=== PATIENT | female | born 1985 | race Caucasian/White ===

== ENCOUNTER 2019-05-05 01:11 | Emergency (ER) | payer OTHER ==
[2019-05-05 02:10] VITALS: BMI 47.0
[2019-05-05] MEDS ORDERED: ACETAMINOPHEN 325 MG TABLET (FP) PO ONE (03:10)
--- NOTE | 2019-05-05 03:10 | PDOC ---
History of Present Illness - General Chief Complaint: Edema Stated Complaint: SWELLING,LEGS/26WKS History Source: Patient Exam Limitations: No Limitations - History of Present Illness Initial Comments: 05/05/19 07:27 33 yo F A2 at 26 weeks GA confirmed IUP single by Dr. Armenta at [facility] with hx of rash (Currently treated) presents to the emergency department with b/l LE swelling that has been ongoing for 1 week. Per the patient, she denies the following: recent travels or immobilizations, hx of DVT/ PE, and recent surgeries. She states she noticed the swelling worsened significantly over the past 24 hours with the edema reaching to her groin bilaterally. Past History - Past Medical History Allergies/Adverse Reactions: Allergies Allergy/AdvReac Type Severity Reaction Status Date / Time No Known Allergies Allergy Verified 05/05/19 02:11 Home Medications: Ambulatory Orders Cyclobenzaprine HCl [Flexeril] 10 mg PO TID #20 tablet 09/17/14 Ibuprofen [Motrin -] 600 mg PO QID #28 tablet 09/17/14 - Surgical History Appendectomy: Yes - Immunization History Immunization Up to Date: Yes - Psycho Social/Smoking Cessation Hx Smoking History: Never smoked Number of Cigarettes Smoked Daily: 2 Hx Alcohol Use: Yes (occasion) Substance Use Type: None Review of Systems - Review of Systems Able to Perform ROS?: Yes Is the patient limited [place] proficient: No Constitutional: No: Chills, Diaphoresis, Fever, Weakness HEENTM: No: Eye Pain, Ear Pain, Nose Pain, Throat Pain, Mouth Pain Respiratory: No: Cough, Shortness of Breath, Hemoptysis Cardiac (ROS): Yes: Edema (b/l LE). No: Chest Pain, Lightheadedness, Palpitations, Chest Tightness ABD/GI: No: Constipated, Diarrhea, Nausea, Rectal Bleeding, Vomiting, Tarry Stools : No: Burning, Hematuria Musculoskeletal: No: Back Pain, Joint Pain, Neck Pain Integumentary: Yes: Rash (known related rash). No: Bruising, Erythema Neurological: No: Headache, Numbness, Tingling, Tremors Psychiatric: No: Change in Appetite Endocrine: No: Unexplained Weight Loss Hematologic/Lymphatic: No: Anemia *Physical Exam - Vital Signs Last Vital Signs Temp Pulse Resp BP Pulse Ox 98.4 F 110 H 18 133/83 100 05/05/19 01:15 05/05/19 01:15 05/05/19 01:15 05/05/19 01:15 05/05/19 01:15 - Physical Exam General Appearance: Yes: Nourished, Appropriately Dressed. No: Apparent Distress, Intoxicated HEENT: positive: EOMI, SILVINO, Normal Voice, Symmetrical, Pharynx Normal. negative: Pale Conjunctivae, Scleral Icterus (R), Scleral Icterus (L), Muffled/ Hoarse voice, Pharyngeal Erythema, Tonsillar Exudate, Tonsillar Erythema, Nasal Congestion, Rhinorrhea, Sinus Tenderness Neck: positive: Trachea midline, Supple. negative: Tender, Lymphadenopathy (R) , Lymphadenopathy (L) Respiratory/Chest: positive: Lungs Clear, Normal Breath Sounds. negative: Chest Tender, Respiratory Distress, Accessory Muscle Use Cardiovascular: positive: Regular Rhythm, Regular Rate, S1, S2. negative: Systolic Murmur Gastrointestinal/Abdominal: positive: Normal Bowel Sounds, Flat, Soft, Other ( gravid). negative: Tender Lymphatic: negative: Adenopathy Musculoskeletal: positive: Normal Inspection. negative: CVA Tenderness, Vertebral Tenderness Extremity: positive: Normal Capillary Refill, Normal Range of Motion, Swelling. negative: Normal Inspection (b/l LE edema without pitting noted on both LE. No rashes noted. no calf tenderness. ), Tender, Calf Tenderness Integumentary: positive: Normal Color, Dry, Warm, Rash ( rash diffuse; chronic) Neurologic: positive: Fully Oriented, Alert, Normal Mood/Affect ED Treatment Course - LABORATORY CBC & Chemistry Diagram: 05/05/19 04:45 05/05/19 04:45 Medical Decision Making - Medical Decision Making 33 yo F A2 at 26 weeks GA confirmed IUP single by Dr. Armenta at [facility] with hx of rash (Currently treated) presents to the emergency department with b/l LE swelling that has been ongoing for 1 week. Initial vitals; Initial Vital Signs Temp Pulse Resp BP Pulse Ox 98.4 F 110 H 18 133/83 100 05/05/19 01:15 05/05/19 01:15 05/05/19 01:15 05/05/19 01:15 05/05/19 01:15 Work up: rule out DVT since the patient is which places her in a hypercoagulable state Laboratory Tests 05/05/19 05/05/19 05/05/19 04:45 04:45 04:45 WBC 14.1 H RBC 4.34 Hgb 8.9 L Hct 28.7 L D MCV 66.1 L MCH 20.6 L D MCHC 31.1 L RDW 20.3 H Plt Count 235 MPV 9.1 D Absolute Neuts (auto) 10.8 H Neutrophils % 76.8 Neutrophils % (Manual) 83.7 H Band Neutrophils % 6.7 Lymphocytes % 7.8 L D Lymphocytes % (Manual) 4.8 L Monocytes % 6.5 Monocytes % (Manual) 2 L Eosinophils % 8.6 H D Eosinophils % (Manual) 1.9 Basophils % 0.3 Basophils % (Manual) 1.0 Myelocytes % (Man) 0 Promyelocytes % (Man) 0 Blast Cells % (Manual) 0 Nucleated RBC % 1 H Metamyelocytes 0 Hypochromia 0 Platelet Estimate Normal Platelet Comment Present Polychromasia 1+ Poikilocytosis 1+ Anisocytosis 2+ Microcytosis 1+ Macrocytosis 0 Tear Drop Cells 1+ Ovalocytes 1+ Stomatocytes 1+ Sodium 136 Potassium 4.3 Chloride 106 Carbon Dioxide 23 Anion Gap 7 L BUN 9.3 Creatinine 0.5 L Est GFR (CKD-EPI)AfAm 146.35 Est GFR (CKD-EPI)NonAf 126.27 Random Glucose 85 Calcium 8.6 Total Bilirubin 0.2 AST 49 H ALT 27 Alkaline Phosphatase 106 Creatine Kinase 103 Troponin I < 0.02 B-Natriuretic Peptide 14.2 Total Protein 6.8 Albumin 2.6 L Beta HCG, Quant 9008.7 Urine Color Urine Appearance Urine pH Ur Specific [place] Urine Protein Urine Glucose (UA) Urine Ketones Urine Blood Urine Nitrite Urine Bilirubin Urine Urobilinogen Ur Leukocyte Esterase Urine WBC (Auto) Urine RBC (Auto) Urine Casts (Auto) U Epithel Cells (Auto) Urine Crystals (Auto) Urine Bacteria (Auto) U Random Total Protein Blood Type Antibody Screen 05/05/19 05/05/19 05/05/19 04:45 04:45 04:45 WBC RBC Hgb Hct MCV MCH MCHC RDW Plt Count MPV Absolute Neuts (auto) Neutrophils % Neutrophils % (Manual) Band Neutrophils % Lymphocytes % Lymphocytes % (Manual) Monocytes % Monocytes % (Manual) Eosinophils % Eosinophils % (Manual) Basophils % Basophils % (Manual) Myelocytes % (Man) Promyelocytes % (Man) Blast Cells % (Manual) Nucleated RBC % Metamyelocytes Hypochromia Platelet Estimate Platelet Comment Polychromasia Poikilocytosis Anisocytosis Microcytosis Macrocytosis Tear Drop Cells Ovalocytes Stomatocytes Sodium Potassium Chloride Carbon Dioxide Anion Gap BUN Creatinine Est GFR (CKD-EPI)AfAm Est GFR (CKD-EPI)NonAf Random Glucose Calcium Total Bilirubin AST ALT Alkaline Phosphatase Creatine Kinase Troponin I B-Natriuretic Peptide Total Protein Albumin Beta HCG, Quant Urine Color Yellow Urine Appearance Cloudy Urine pH 5.5 Ur Specific [place] 1.033 Urine Protein 1+ H Urine Glucose (UA) 2+ H Urine Ketones 1+ H Urine Blood Negative Urine Nitrite Negative Urine Bilirubin Negative Urine Urobilinogen 1.0 Ur Leukocyte Esterase Negative Urine WBC (Auto) 49.3 Urine RBC (Auto) 1 Urine Casts (Auto) 28 U Epithel Cells (Auto) 5.2 Urine Crystals (Auto) Few Urine Bacteria (Auto) 591.9 U Random Total Protein 33.9 H Blood Type O POSITIVE Antibody Screen Negative Patient noted to have UTI on UA with positive protein O + without ab leukocytosis and anemia noted lab work bhcg levels at 9000 Patient signed out to morning team with pending US to rule out DVT. Discharge - Discharge Information Problems reviewed: Yes Clinical Impression/Diagnosis: Leg swelling Qualifiers: Weeks of gestation: unspecified Qualified Code(s): Z34.90 - Encounter for supervision of normal , unspecified, unspecified trimester - Follow up/Referral - Patient Discharge Instructions Additional Instructions: follow up with your OB as scheduled, if symptoms persist, or any time you experience : -regular contractions -decreased movement -vaginal bleeding -your water breaks - Post Discharge Activity
--- NOTE | 2019-05-05 03:21 | PDOC ---
Attending Attestation - Resident Resident Name: Julian Pozo - ED Attending Attestation I have performed the following: I have examined & evaluated the patient, The case was reviewed & discussed with the resident, I agree w/resident's findings & plan - HPI HPI: 05/07/19 17:26 see resident hpi - Physicial Exam PE: 05/07/19 17:26 see resident exam - Medical Decision Making 05/07/19 17:26 33-year-old Female currently 26 weeks gestational age complaining of lower extremity edema Blood pressure borderline on arrival, case signed out to dayshift pending ultrasound and further evaluation, if findings consistent with or concerning for preeclampsia patient to receive 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
[2019-05-05] MEDS ORDERED: ACETAMINOPHEN 325 MG TABLET (FP) ONE (04:16)
[2019-05-05 05:32] LABS: BASO % 0.3 % (0-2.0); EOS % 8.6 % (0-4.5); HEMATOCRIT 28.7 % (32.4-45.2); HEMOGLOBIN 8.9 GM/dL (10.7-15.3); LYMPH % 7.8 % (8-40); MCH 20.6 pg (25.7-33.7); MCHC 31.1 g/dl (32.0-36.0); MEAN CELL VOLUME 66.1 fl (80-96); MEAN PLT VOLUME 9.1 fl (7.5-11.1); MONO % 6.5 % (3.8-10.2); NEUT % 76.8 % (42.8-82.8); PLATELET COUNT 235 K/MM3 (134-434); RBC 4.34 M/mm3 (3.60-5.2); RDW 20.3 % (11.6-15.6); WHITE BLOOD COUNT 14.1 K/mm3 (4.0-10.0)
[2019-05-05 05:37] LABS: EPI CELLS 5.2 /HPF (0-5/HPF); HYALINE CASTS 28 /lpf (0-8); PH,URINE 5.5 (5.0-8.0); URINE APPEARANCE CLOUDY; URINE BACTERIA 591.9 /hpf (NEGATIVE); URINE BILIRUBIN NEGATIVE (NEGATIVE); URINE COLOR YELLOW; URINE GLUCOSE (UA) 2+ (NEGATIVE); URINE KETONE 1+ (NEGATIVE); URINE LEUK ESTERASE NEGATIVE (NEGATIVE); URINE NITRITE NEGATIVE (NEGATIVE); URINE PROTEIN 1+ (NEGATIVE); URINE RBC 1 /hpf (0-4)
[2019-05-05 06:03] LABS: ALBUMIN 2.6 g/dl (3.4-5.0); ALK PHOS 106 U/L (45-117); ANION GAP 7 MMOL/L (8-16); BILIRUBIN,TOTAL 0.2 mg/dL (0.2-1); BLOOD UREA NITROGEN 9.3 mg/dL (7-18); CALCIUM 8.6 mg/dL (8.5-10.1); CHLORIDE 106 mmol/L (98-107); CO2 23 mmol/L (21-32); CREATININE 0.5 mg/dL (0.55-1.3); GLUCOSE,RANDOM 85 mg/dL (74-106); POTASSIUM 4.3 mmol/L (3.5-5.1); SGOT/AST 49 U/L (15-37); SGPT/ALT 27 U/L (13-61); SODIUM 136 mmol/L (136-145); TOT PROT 6.8 g/dl (6.4-8.2)
[2019-05-05 06:18] LABS: N-TERMINAL BNP 14.2 pg/ml (5-125)
--- NOTE | 2019-05-05 07:39 | PDOC ---
*Physical Exam - Vital Signs Last Vital Signs Temp Pulse Resp BP Pulse Ox 98.4 F 110 H 18 133/83 100 05/05/19 01:15 05/05/19 01:15 05/05/19 01:15 05/05/19 01:15 05/05/19 01:15 ED Treatment Course - LABORATORY CBC & Chemistry Diagram: 05/05/19 04:45 05/05/19 04:45 - ADDITIONAL ORDERS Additional order review: Laboratory Results 05/05/19 05/05/19 05/05/19 04:45 04:45 04:45 Sodium 136 Potassium 4.3 Chloride 106 Carbon Dioxide 23 Anion Gap 7 L BUN 9.3 Creatinine 0.5 L Est GFR (CKD-EPI)AfAm 146.35 Est GFR (CKD-EPI)NonAf 126.27 Random Glucose 85 Calcium 8.6 Total Bilirubin 0.2 AST 49 H ALT 27 Alkaline Phosphatase 106 Creatine Kinase 103 Troponin I < 0.02 B-Natriuretic Peptide Total Protein 6.8 Albumin 2.6 L Beta HCG, Quant Urine Color Yellow Urine Appearance Cloudy Urine pH 5.5 Ur Specific [place] 1.033 Urine Protein 1+ H Urine Glucose (UA) 2+ H Urine Ketones 1+ H Urine Blood Negative Urine Nitrite Negative Urine Bilirubin Negative Urine Urobilinogen 1.0 Ur Leukocyte Esterase Negative Urine RBC (Auto) 1 Urine Casts (Auto) 28 U Epithel Cells (Auto) 5.2 Urine Bacteria (Auto) 591.9 U Random Total Protein 33.9 H 05/05/19 04:45 Sodium Potassium Chloride Carbon Dioxide Anion Gap BUN Creatinine Est GFR (CKD-EPI)AfAm Est GFR (CKD-EPI)NonAf Random Glucose Calcium Total Bilirubin AST ALT Alkaline Phosphatase Creatine Kinase Troponin I B-Natriuretic Peptide 14.2 Total Protein Albumin Beta HCG, Quant 9008.7 Urine Color Urine Appearance Urine pH Ur Specific [place] Urine Protein Urine Glucose (UA) Urine Ketones Urine Blood Urine Nitrite Urine Bilirubin Urine Urobilinogen Ur Leukocyte Esterase Urine RBC (Auto) Urine Casts (Auto) U Epithel Cells (Auto) Urine Bacteria (Auto) U Random Total Protein 05/05/19 04:45 RBC 4.34 MCV 66.1 L MCHC 31.1 L RDW 20.3 H MPV 9.1 D Neutrophils % 76.8 Lymphocytes % 7.8 L D Monocytes % 6.5 Eosinophils % 8.6 H D Basophils % 0.3 - Medications Given in the ED: ED Medications Discontinued Medications Generic Name Dose Route Start Last Admin Trade Name Franco PRN Reason Stop Dose Admin Acetaminophen 975 mg 05/05/19 03:10 05/05/19 04:32 Tylenol - PO 05/05/19 03:11 Not Given ONCE ONE Medical Decision Making - Medical Decision Making Received pt as sign out Pending ECG BLE duplex 05/05/19 07:38 ECG w/ sinus tachycardia; HR 108; QTc 474; no axis deviation; TWI III; no DANIELE; abn ecg 05/05/19 08:04 BLE duplex w/o DVT Plan to send to L&D for evaluation for concern of pre-eclampsia Discharge - Discharge Information Problems reviewed: Yes Clinical Impression/Diagnosis: Leg swelling Qualifiers: Weeks of gestation: unspecified Qualified Code(s): Z34.90 - Encounter for supervision of normal , unspecified, unspecified trimester Condition: Stable Disposition: HOME - Admission Yes - Follow up/Referral - Patient Discharge Instructions Additional Instructions: follow up with your OB as scheduled, if symptoms persist, or any time you experience : -regular contractions -decreased movement -vaginal bleeding -your water breaks - Post Discharge Activity
[2019-05-05 10:00] VITALS: TEMP 97.8
[2019-05-05 10:32] VITALS: BP 112/54; PULSE 109
[2019-05-05 11:45] LABS: URINE CRYSTALS FEW /hpf; URINE WBC 49.3 /hpf (0-5)
[2019-05-05 13:05] LABS: ANISOCYTOSIS 2+; MACROCYTOSIS 0; OVALOCYTE 1+; PLATELET ESTIMATE NORMAL; TEAR DROP CELLS 1+
--- NOTE | 2019-05-05 13:42 | EKG ---
Test Reason : Blood Pressure : / mmHG Vent. Rate : 108 BPM Atrial Rate : 108 BPM P-R Int : 142 ms QRS Dur : 086 ms QT Int : 354 ms P-R-T Axes : 032 030 010 degrees QTc Int : 474 ms SINUS TACHYCARDIA OTHERWISE NORMAL ECG NO PREVIOUS ECGS AVAILABLE Confirmed by MAITE RODRIGUEZ MD ([id number]) on 05/05/2019 1:42:17 PM Referred By: Confirmed By:MAITE RODRIGUEZ MD
== END 2019-05-05 12:33 ==
LOC: JER 01:11
DX: O12.02 Gestational edema, second trimester (principal); Z3A.26 26 weeks gestation of pregnancy
CPT/HCPCS: 36415; 80053; 81003; 82550; 83880; 84156; 84484; 84702; 85025; 86850; 86900; 86901; 87077; 87086; 93005; 93010; 93970-TC; 99285-25